=== PATIENT | female | born 1960 | race Hispanic/Latino ===

== ENCOUNTER 2016-11-17 17:47 | Emergency (ER) | payer BC ==
[2016-11-17 17:55] VITALS: BP 116/86; PULSE 85; RESP 20; TEMP 96.6; O2SAT 96
[2016-11-17] MEDS ORDERED: Sodium Chloride 0.9% 1,000 ML IV STA (18:28)
[2016-11-17 19:15] LABS: BASO # 0.1 K/uL (0.0-0.2); BASO % 0.8 % (0.0-2.0); EOS # 0.2 K/uL (0.0-0.7); EOS % 2.3 % (0.0-4.0); HEMATOCRIT 40.5 % (34.0-47.0); LYMPH % 22.9 % (20.0-40.0); MEAN CELL VOLUME 92.2 fl (81.0-99.0); MEAN CORPUSCULAR HEMOGLOBIN 30.6 pg (27.0-31.0); MEAN CORPUSCULAR HGB CONC 33.2 g/dL (33.0-37.0); MEAN PLATELET VOLUME 8.1 fl (7.2-11.7); MONO # 0.4 K/uL (0.0-0.8); MONO % 4.2 % (0.0-10.0); NEUT # 6.2 K/uL (1.8-7.0); NEUT % 69.8 % (50.0-75.0); NRBC % 0.1 % (0.0-0.0); RED CELL DISTRIBUTION WIDTH 12.2 % (11.5-14.5); WHITE BLOOD COUNT 8.9 K/uL (4.8-10.8)
[2016-11-17 19:41] LABS: ALB/GLOB RATIO 1.3 (1.0-2.1); ALCOHOL SERUM 290 mg/dl (0-10); ALKALINE PHOSPHATASE 69 U/L (38-126); ALT/SGPT 24 U/L (9-52); AST/SGOT 30 U/L (14-36); BILIRUBIN,TOTAL 0.5 mg/dl (0.2-1.3); BLOOD UREA NITROGEN 16 mg/dl (7-17); CALCIUM 8.6 mg/dL (8.4-10.2); CARBON DIOXIDE 26 mmol/L (22-30); CHLORIDE 102 mmol/L (98-107); GFR AFRICAN-AMERICAN > 60; GLUCOSE,RANDOM 131 mg/dL (65-105); POTASSIUM 3.6 MMOL/L (3.6-5.0); SODIUM 143 mmol/l (132-148)
--- NOTE | 2016-11-17 21:42 | ED PDOC ---
HPI: Psych/Substance Abuse Time Seen by Provider: 11/17/16 18:03 Chief Complaint (Nursing): Seizure History Per: Other (per triage notes, friend who was with patient, it appears that the patient became lethargic as she arrived into [place] via train. Patient has had two drinks earlier. Patient was unable to give history on arrival. She was nauseous and retching. She denies other complaints. She later confirms concerns that there may be a heart problem that is waiting for cardiology evaluation. ) Past Medical History Reviewed: Historical Data, Nursing Documentation, Vital Signs Vital Signs: Last Vital Signs Temp 96.6 F L 11/17/16 17:51 Pulse 85 11/17/16 17:51 Resp 20 11/17/16 17:51 BP 116/86 11/17/16 17:51 Pulse Ox 96 11/17/16 17:51 - Medical History PMH: No Chronic Diseases - Surgical History Surgical History: No Surg Hx - Family History Family History: States: No Known Family Hx - Living Arrangements Living Arrangements: With Family - Social History Alcohol: Social - Allergies Allergies/Adverse Reactions: Allergies Allergy/AdvReac Type Severity Reaction Status Date / Time No Known Allergies Allergy Verified 11/17/16 17:51 Review of Systems ROS Statement: Except As Marked, All Systems Reviewed And Found Negative Physical Exam - Reviewed Nursing Documentation Reviewed: Yes Vital Signs Reviewed: Yes - Physical Exam Appears: Positive for: Well, Non-toxic, No Acute Distress Head Exam: Positive for: ATRAUMATIC, NORMAL INSPECTION, NORMOCEPHALIC Skin: Positive for: Normal Color, Warm, DRY Eye Exam: Positive for: EOMI, Normal appearance, PERRL ENT: Positive for: Normal ENT Inspection Neck: Positive for: Normal, Painless ROM Cardiovascular/Chest: Positive for: Regular Rate, Rhythm Respiratory: Positive for: CNT, Normal Breath Sounds Gastrointestinal/Abdominal: Positive for: Normal Exam, Bowel Sounds, Soft Back: Positive for: Normal Inspection Extremity: Positive for: Normal ROM Neurologic/Psych: Positive for: Alert, Oriented - Laboratory Results Result Diagrams: 11/17/16 18:31 11/17/16 19:00 - ECG O2 Sat by Pulse Oximetry: 96 Medical Decision Making Medical Decision Making: patient's is present and willing to take her home to recover. patient now cooperative and easily arousable. Disposition - Clinical Impression Clinical Impression: Alcohol intoxication - Patient ED Disposition Is Patient to be Admitted: No Doctor Will See Patient In The: Office Counseled Patient/Family Regarding: Diagnosis, Need For Followup - Disposition Disposition: Routine/Home Disposition Time: 21:45 Condition: IMPROVED Instructions: Alcohol Intoxication (ED) - POA Present On Arrival: None
== END 2016-11-17 21:59 | disposition home or self-care (01) ==
LOC: H.ER 17:47
DX: F10.129 Alcohol abuse with intoxication, unspecified (principal); Z86.69 Personal history of other diseases of the nervous system and sense organs
CPT/HCPCS: 80053; 82948; 85025; 96360; 99284; G0480; J7040